=== PATIENT | female | born 1960 | race Hispanic/Latino ===

== ENCOUNTER 2018-10-23 02:25 | Inpatient (IN) | payer MEDICARE ==
[2018-10-23 02:31] VITALS: BMI 32.3
--- NOTE | 2018-10-23 02:31 | ED PDOC ---
Psych Transfer Clearance - Clearance Statement Clearance Statement: Reviewed vital signs, lab results and transfer papers. Patient clinically stable for psychiatric admission.
[2018-10-23 02:32] VITALS: O2SAT 96
[2018-10-23] MEDS ORDERED: Magnesium Hydroxide Susp 30 ml UD PO PRN (02:46)
[2018-10-23] MEDS ORDERED: DiphenhydrAMINE 50 mg/ml Inj IM PRN (02:46)
[2018-10-23] MEDS ORDERED: Alum-Mag Hydrox-Simethicone Susp (30 mL) PO PRN (02:46)
--- NOTE | 2018-10-23 03:49 | PCM.BM ---
<Maggie Ibarra - Last Filed: 10/23/18 03:47> Treatment Plan Problems - Problems identified on initial assessmt Anxiety Date Initiated: 10/23/18 Time Initiated: 03:47 Assessment reference: NA Status: Active Hopelessness/Helplessness Date Initiated: 10/23/18 Time Initiated: 03:47 Assessment reference: NA Status: Active Less than Optimal Nutrition Date Initiated: 10/23/18 Time Initiated: 03:48 Assessment reference: NA Status: Active Treatment assets and liabiliti Patient Assests: adapts well, cooperative, ADL independent, negotiates basic needs, cognitively intact Patient Liabilities: financial problems, poor support system - Milieu Protocol Maintain good personal hygiene: daily Encourage regular showers, other Remind patient to perform daily oral care (prn), other Assist patient to perform ADL's (prn) Conduct patient checks and document Observation sheet: Q15 minutes Maintain personal safety: every shift Educate patient to report safety concerns to staff, every shift Monitor environment for contraband/sharps Medication safety: Monitor for expected outcome, potential side effects: every shift, Assess barriers to learning: every shift, Assess readiness for medication education: every shift <Humberto Vega - Last Filed: 10/31/18 15:14> Family Contact Family involvement: Family/SO is involved Family contact: Patient agrees to contact, Family has been contacted by patient, Telephone contact initiated by staff Family contact name: Jed Brothers - [phone] Family contacted how many times per week?: 2 - Goals for Treatment Patient goals for treatment: Pt reported she would like have her medications adjusted to help stabilize her mood, specifically her depression and anxiety. Discharge/Continuing Care - Education Needs Education Needs: Patient Medication, Patient Diagnosis/Disease Process, Patient Coping Skills, Patient Placement options, Patient Community resources, Patient Aftercare Safety Plan - Discharge Discharge Criteria: Tolerates medication w/o severe side effects, Free of Suicidal thoughts, Free of agitation, Normal sleep pattern, Ability to care for self, Reduction of target symptoms Discharge to:: Home, With Family - Treatment Team Participation Discussed with Family/SO: No Was Patient/Family/SO present at Treatment Team Meeting: Yes <Jacqueline Chavez - Last Filed: 11/06/18 16:08> Discharge/Continuing Care - Treatment Team Participation Patient/Family/SO Statement: 11/06/18 16:08 Patient was brought into tx team today to discuss progress on 3NP and tx goals. Pt. continues to report feeing numb. Pt. continues to present as depressed as exhibited by poor energy/motivation, feelings of hopelessness and sadness. Pt. appropriately tearful through-out discussion regarding of son. Pt. reported improvement in sleep disturbances and finally resting last night. Pt. denied SI/HI and was able to contract for safety on 3NP. Pt. strongly encouraged to participate in unit milieu to improve sleep hygiene, promote socialization, and improve mood. Patient has expressed interest in having a conversation with her therapist regarding pts progress on 3NP and sons recent passing. Pt. reporte d not feeling comfortable having that conversation using [employer] pay phones. Dictating Machine Typist informed pt. that therapist would be contacted as to arrange a possible time to bring patient into clinicians office so that patient has a safe space to communicate with her therapist. Dictating Machine Typist inquired whether patient is interested in having a restricted visitation for filled out to ensure that patient does not receive unwanted visitors through-out the weekend. Patient initially reported wanting to specify that only her current is allowed to visit but declined to fill out form when approached by RN following tx team.
[2018-10-23 08:18] LABS: BASO % 0.3 % (0.0-2.0); EOS % 0.4 % (0.0-4.0); HEMOGLOBIN 13.2 g/dL (12.0-16.0); LYMPH # 2.1 K/uL (1.0-4.3); LYMPH % 19.1 % (20.0-40.0); MEAN CELL VOLUME 94.8 fl (81.0-99.0); MEAN CORPUSCULAR HEMOGLOBIN 32.3 pg (27.0-31.0); MEAN CORPUSCULAR HGB CONC 34.1 g/dL (33.0-37.0); MEAN PLATELET VOLUME 8.6 fl (7.2-11.7); MONO # 0.6 K/uL (0.0-0.8); MONO % 5.7 % (0.0-10.0); NEUT # 8.3 K/uL (1.8-7.0); NEUT % 74.5 % (50.0-75.0); RBC 4.1 Mil/uL (3.80-5.20); RED CELL DISTRIBUTION WIDTH 12.6 % (11.5-14.5); WHITE BLOOD COUNT 11.2 K/uL (4.8-10.8)
[2018-10-23 08:30] LABS: ALB/GLOB RATIO 1.2 (1.0-2.1)
--- NOTE | 2018-10-23 08:30 | CARD ---
APPROVED REPORT Date of service: 10/23/2018 EKG Measurement Heart [id number] <Conclusion> Normal sinus rhythm Nonspecific ST abnormality Prolonged QT Abnormal ECG
[2018-10-23 08:36] LABS: ALBUMIN 3.8 g/dL (3.5-5.0); ALT/SGPT 93 U/L (9-52); AST/SGOT 38 U/L (14-36); BLOOD UREA NITROGEN 7 mg/dl (7-17); CALCIUM 9.1 mg/dL (8.4-10.2); GFR NON-AFRICAN AMERICAN > 60; HDL CHOLESTEROL 38 MG/DL (30-70)
[2018-10-23 08:45] LABS: LDL CHOLESTEROL 63 mg/dL (0-129)
[2018-10-23 09:00] LABS: T4 9.74 ug/dl (5.5-11.0)
--- NOTE | 2018-10-23 16:30 | PCM.PSYCH ---
Initial Psychiatric Evaluation - Initial Psychiatric Evaluation Legal Status: Capacity Chief Complaint (in patient's own words): I am so overwhelmed and tired of life History of Present Illness and Precipitating Events: pt is 58 ys old female with previous psychiatric diagnosis of depression/ bipolar depression, presented to ER having suicidal ideation with plan to overdose on medication pt reported depressed since age 17, has about seven suicidal attempts by jose benavides, has been increasingly depressed as her mother in law suffers from stroke, moved in with them, her is unemployed with financial difficulties pt has been having poor sleep with early insomnia, poor appetite low energy, increased anxiety feeling hopeless and helpless reported having passive suicidal ideation without active plan on the unit, denied perceptual disturbances, urine toxicology positive for cannabis Current Medications: Active Medications Generic Name Dose Route Start Last Admin Trade Name Freq PRN Reason Stop Dose Admin Acetaminophen 650 mg 10/23/18 02:46 Tylenol 325mg Tab PO Q4 PRN pain 1-7 Al Hydrox/Mg Hydrox/Simethicone 30 ml 10/23/18 02:46 Maalox Plus 30 Ml PO Q4 PRN Dyspepsia Buspirone HCl 10 mg 10/23/18 17:00 Buspar PO TID SARA Cholestyramine Resin 4 gm 10/23/18 17:00 Questran PO BID SARA Citalopram Hydrobromide 40 mg 10/23/18 13:30 10/23/18 14:12 Celexa PO 40 mg DAILY SARA Administration Clonazepam 0.25 mg 10/23/18 17:00 Klonopin PO TID SARA Diphenhydramine HCl 50 mg 10/23/18 02:46 Benadryl IM Q6 PRN Extrapyramidal S/S Unable PO Diphenhydramine HCl 50 mg 10/23/18 02:46 Benadryl PO Q6 PRN Extrapyramidal Symptoms Diphenhydramine HCl 50 mg 10/23/18 02:46 Benadryl PO HS PRN Sleep Haloperidol 5 mg 10/23/18 02:46 Haldol PO Q4 PRN Agitation Haloperidol Lactate 5 mg 10/23/18 02:46 Haldol IM Q4 PRN Agitation, Unable to Take PO Lorazepam 2 mg 10/23/18 02:46 Ativan IM Q6 PRN Anxiety/Agitation,Unable PO Lorazepam 1 mg 10/23/18 02:46 Ativan PO Q8 PRN Anxiety/Agitation Magnesium Hydroxide 30 ml 10/23/18 02:46 Milk Of Magnesia PO HS PRN Constipation Nitrofurantoin Macrocrystals 100 mg 10/23/18 21:00 Macrobid PO Q12 SARA Protocol Quetiapine Fumarate 150 mg 10/23/18 22:00 Seroquel PO HS SARA Zolpidem Tartrate 5 mg 10/23/18 13:27 Ambien PO HS PRN Insomnia Past Psychiatric History - Past Psychiatric History Explanation of prior treatment: about previous seven hospitalizations at [facility] seven previous suicidal attempts by overdose History of ETOH/Drug Use: cannabis abuse Pertinent Medical Hx (Current Medical&Sleep Prob, Allergies): Allergies Allergy/AdvReac Type Severity Reaction Status Date / Time Penicillins Allergy RASH Verified 10/23/18 02:29 Albuterol HFA [Ventolin HFA 90 mcg/actuation (8 g)] 2 puff INH DAILY PRN 10/23/18 Citalopram Hydrobromide [Celexa] 40 mg PO DAILY 10/23/18 Fluticasone/Vilanterol 100/25 [Breo Ellipta 100-25 MCG INH] 1 puff INH DAILY 10/23/18 Nitrofurantoin Macrocrystals [Macrobid] 100 mg PO BID 10/23/18 Quetiapine Fumarate [Seroquel] 100 mg PO HS 10/23/18 Zolpidem [Ambien] 10 mg PO HS 10/23/18 busPIRone [Buspar] 15 mg PO BID 10/23/18 clonazePAM [clonAZEPAM] 0.5 mg PO TID 10/23/18 valACYclovir [Valtrex] 500 mg PO DAILY 10/23/18 Mental Status Examination - Personal Presentation Personal Presentation: Looks older than stated age - Affect Affect: Constricted, Depressed - Motor Activity Motor Activity: Psychomotor Retardation - Reliability in Providing Information Reliability in Providing Information: Fair - Speech Speech: Relevant - Mood Mood: Depressed, Anxious - Formal Thought Process Formal Thought Process: Circumstantial - Obsessions/Compulsions Obsessions: No Compulsions: No - Cognitive Functions Orientation: Person, Place, Situation, Time Sensorium: Alert Judgement: Imparied, as evidence by: Poor judgement - Risk Risk: Suicidal, Diminished functioning - Strength & Assets Inventory Strength & Assets Inventory: Life experience - Limitations Additional comments: poor social support DSM 5 DX - DSM 5 DSM 5 Diagnosis: major depression recurrent rule out bipolar disorder depressed cannabis use disorder - Recommended/Plan of Treatment Treatment Recommendations and Plan of Treatment: start celexa 40mg daily seroquel 200mg qhs klonopin 0.25mg tid buspar 10mg tid cbt group supportive therapy medical consult for diarrhea and hypokalemia
[2018-10-24] MEDS: Cholestyramine 4 gm/Pkt UD PO SCH ×2 (09:00→17:08)
--- NOTE | 2018-10-24 15:13 | PCM.PYCHPN ---
Psychiatric Progress Note - Psychiatric Progress Note Patient seen today, length of contact: pt has been evaluated . Patient Chief Complaint: pt has been feeling depressed and anxious triggered by many psychosocial stressor , of a close friend recently .pt remains with poor insight and ralph further stabilization. Mental Status Examination - Cognitive Function Orientation: Person, Place, Situation, Time - Mood Mood: Depressed, Anxious - Affect Affect: Constricted, Depressed - Formal Thought Process Formal Thought Process: Circumstantial Goal/Treatment Plan - Goal/Treatment Plan Progress Toward Problem(s) and Goals/Treatment Plan: Continue the current regimen of seriquel and buspar and titrate the meds as needed . Follow up with dr sutherland regarding d/c plan medical follow up regarding diarrhoea and hypokalemia.
--- NOTE | 2018-10-25 00:55 | CON ---
DATE: 10/24/2018 HISTORY OF PRESENT ILLNESS: This is a 58-year-old female with history of psychiatric diagnosis of depression and bipolar disorder was admitted to psychiatry floor. Medical consultation was called for medical followup while the patient is in psychiatry floor. The patient was in [facility] where she was diagnosed with urinary tract infection. The patient was started on nitrofurantoin for urinary tract infection. The patient was complaining of diarrhea. Other review of systems is negative. ALLERGIES: NO KNOWN ALLERGIES. MEDICATIONS: Reviewed and ordered as per MAR. SOCIAL HISTORY: No history of smoking, ETOH or substance abuse. PAST MEDICAL HISTORY: Bronchial asthma, hypertension. FAMILY HISTORY: Noncontributory. PHYSICAL EXAMINATION: GENERAL: The patient is not in any cardiopulmonary distress. VITAL SIGNS: Blood pressure 129/80, temperature 97.5, respiratory rate 20, and pulse 90. HEENT: Pupils equal, reactive to light. Normal-appearing mucosa of the conjunctivae, oropharynx, and nasal membrane mucosa. NECK: Supple. No JVD. No carotid bruit. No lymph node. CHEST AND LUNGS: Bilateral symmetrical expansion. Good air exchange. No rales. No rhonchi. CARDIOVASCULAR SYSTEM: PMI not localized. S1 and S2. No additional sounds. ABDOMEN: Normoactive bowel sounds. No tenderness. No organomegaly. No masses. EXTREMITIES: No cyanosis. No clubbing. No edema. CENTRAL NERVOUS SYSTEM: Alert, awake, oriented x2. No neurological deficit could be appreciated. ASSESSMENT: 1. Urinary tract infection. 2. Diarrhea. Differential diagnosis could be antibiotic related. PLAN: We will check stool for C. difficile and will give the patient Questran 4 g twice a day as needed for diarrhea, and we will continue the nitrofurantoin that was started in [facility] for another 5 days. We will follow up the patient with you. Liz Everett MD
[2018-10-25] MEDS: Cholestyramine 4 gm/Pkt UD PO SCH ×3 (10:17→17:51)
--- NOTE | 2018-10-25 12:23 | PCM.PYCHPN ---
Psychiatric Progress Note - Psychiatric Progress Note Patient seen today, length of contact: pt has been evaluated . Patient Chief Complaint: pt has been feeling less depressed and less anxious but is worried about not being on valtrex prescribed for her Herpes and afraid of any outbreak.pt has been feeling depressed and anxious triggered by many psychosocial stressor , of a close friend recently .pt remains with poor insight and ralph further stabilization. Medication Change: Yes (restart valtrex) Medical Record Reviewed: Yes Mental Status Examination - Cognitive Function Orientation: Person, Place, Situation, Time Attention: Poor Concentration: Poor Association: WNL Fund of Knowledge: WNL - Mood Mood: Depressed, Anxious - Affect Affect: Constricted, Depressed - Formal Thought Process Formal Thought Process: Circumstantial Goal/Treatment Plan - Goal/Treatment Plan Progress Toward Problem(s) and Goals/Treatment Plan: Continue the current regimen of seroquel celexa and buspar and titrate the meds as needed . will restart valtrex and follow up with hospitalist . Follow up with dr sutherland regarding d/c plan
[2018-10-26] MEDS: Cholestyramine 4 gm/Pkt UD PO SCH (12:35)
--- NOTE | 2018-10-26 17:36 | PCM.PYCHPN ---
Psychiatric Progress Note - Psychiatric Progress Note Patient seen today, length of contact: chart reviewed case discussed with team Patient Chief Complaint: depression anxiety has had medication adjusted /changed per this admission, reports previous rx was for prolonged period of time, was having suicidal ideations, staff report pt rx adherent denies notable side effects, seen in unit/milieu Problems Identified/Issues Discussed: alteration in mood alteration in coping Medical Problems: per chart Diagnostic Results: per psychiatry per medicine per nursing per social work per recreational therapy DSM 5 Symptoms Update: somewhat improving depression Medication Change: No Medical Record Reviewed: Yes Consults ordered or reviewed: pt being followed by hospitalist Mental Status Examination - Cognitive Function Orientation: Person, Place, Situation, Time - Mood Mood: Depressed, Anxious - Affect Affect: Constricted, Depressed - Formal Thought Process Formal Thought Process: Circumstantial Goal/Treatment Plan - Goal/Treatment Plan Progress Toward Problem(s) and Goals/Treatment Plan: inpt milieu adjust medications per clinical status vital signs and clinical observation per protocol and per clinical status pt being followed by hospitalist pt being treated for uti-team to contact hospitalist if antibiotic to be extended team to consider having pt evaluated by dietition pt reported discreased appeitite charge planning in progress Estimated Date of D/C: 10/30/18 - Smoking Cessation Smoking Cessation Initiated: No Reason for not providing: pt defers
--- NOTE | 2018-10-26 22:35 | PN ---
DATE: 10/26/2018 SUBJECTIVE: The patient is not in any cardiopulmonary distress. The patient was on nitrofurantoin. PHYSICAL EXAMINATION: VITAL SIGNS: Blood pressure 136/83, temperature 98, respiratory rate 18, pulse 87. HEENT: Pupils equal, reactive to light. Normal-appearing mucosa of the conjunctivae, oropharynx and nasal membrane mucosa. NECK: Supple. No JVD. No carotid bruit. No lymph node. No thyromegaly. CHEST AND LUNGS: Bilateral symmetrical expansion. Good air exchange. No rales, no rhonchi. CARDIOVASCULAR SYSTEM: PMI not localized. S1, S2, no additional sounds. ABDOMEN: Normoactive bowel sounds. No tenderness. No organomegaly. No masses. EXTREMITIES: No cyanosis, no clubbing, no edema. TOW PICKER: Alert, awake, oriented x2. No neurological deficit could be appreciated. ASSESSMENT: 1. Urinary tract infection. 2. Hypokalemia. 3. Transaminitis with elevated liver enzymes. PLAN: Continue current medications, and we will repeat the blood work in the morning. Liz Everett MD
[2018-10-27 07:14] LABS: ALB/GLOB RATIO 1.2 (1.0-2.1); ALBUMIN 3.6 g/dL (3.5-5.0); ALT/SGPT 64 U/L (9-52); AST/SGOT 25 U/L (14-36); BLOOD UREA NITROGEN 8 mg/dl (7-17); CALCIUM 9.4 mg/dL (8.4-10.2); GFR NON-AFRICAN AMERICAN > 60
--- NOTE | 2018-10-27 11:42 | PCM.PYCHPN ---
Psychiatric Progress Note - Psychiatric Progress Note Patient seen today, length of contact: chart reviewed case discussed with team Patient Chief Complaint: I have no energy and no appetite Problems Identified/Issues Discussed: pt seen in bed, anhedonic, poor eye contact speech soft and slow depressed mood and affect , low energy and poor motivation, reported poor appetite and interrupted sleep, discussed with pt the need to change medications, downtitrating seroquel and celexa and starting abilify for depression and mood stabilization with less sedating effect also starting remeron at night for improving sleep and appetite , encouraged pt to attend groups and participate in treatment pt reporting passive suicidal ideation without active plan on the unit, denied perceptual disturbances Medical Problems: about previous seven hospitalizations at [facility] seven previous suicidal attempts by overdose DSM 5 Symptoms Update: bipolar disorder depressed Medication Change: Yes (start abilify and remeron) Medical Record Reviewed: Yes Mental Status Examination - Cognitive Function Orientation: Person, Place, Situation, Time Memory: Intact Attention: WNL Concentration: Poor Association: WNL Fund of Knowledge: Poor Decription of patient's judgement and insights: partial insight , fair judgment - Mood Mood: Depressed, Anxious - Affect Affect: Constricted, Depressed - Speech Speech: Soft - Formal Thought Process Formal Thought Process: Circumstantial Psychotic Thoughts and Behaviors: pt denied perceptual disturbances, non elicited - Suicidal Ideation Suicidal Ideation: No - Homicidal Ideation Homicidal Ideation: No Goal/Treatment Plan - Goal/Treatment Plan Need for Continued Stay: Remain at risks for inpatient hospitalization, Severe depression anxiety Progress Toward Problem(s) and Goals/Treatment Plan: decrease celexa 20mg daily with plan to discontinue decrease seroquel 50mg qhs with plan to discontinue klonopin 0.25mg tid buspar 10mg tid start abilify 5mg start remeron 7.5 mg qhs cbt group supportive therapy Estimated Date of D/C: 10/30/18
[2018-10-27] MEDS: Cholestyramine 4 gm/Pkt UD PO SCH (12:43)
[2018-10-27] MEDS ORDERED: Potassium Chloride 20 mEq ER Tab PO ONE (16:02)
[2018-10-28] MEDS: Cholestyramine 4 gm/Pkt UD PO SCH ×3 (09:19→17:32)
--- NOTE | 2018-10-28 14:53 | PCM.PYCHPN ---
Psychiatric Progress Note - Psychiatric Progress Note Patient seen today, length of contact: chart reviewed case discussed with team Patient Chief Complaint: I am trying to push myself to do things Problems Identified/Issues Discussed: pt seen in day room, reported feeling less depressed, improved sleep with remeron, continues to report poor appetite and low energy level, discussed increasing dose of abilify and remeron, no reported side effects pt denied active thoughts of self harm on the unit , denied perceptual disturbances Medical Problems: about previous seven hospitalizations at [facility] seven previous suicidal attempts by overdose DSM 5 Symptoms Update: bipolar ii disorder depressed Medication Change: Yes (increase abilify and remeron) Medical Record Reviewed: Yes Mental Status Examination - Cognitive Function Orientation: Person, Place, Situation, Time Memory: Intact Attention: WNL Concentration: WNL Association: WNL Fund of Knowledge: [facility] Decription of patient's judgement and insights: partial insight , fair judgment - Mood Mood: Depressed, Anxious - Affect Affect: Constricted, Depressed - Speech Speech: Soft - Formal Thought Process Formal Thought Process: Circumstantial Psychotic Thoughts and Behaviors: pt denied perceptual disturbances, non elicited - Suicidal Ideation Suicidal Ideation: No - Homicidal Ideation Homicidal Ideation: No Goal/Treatment Plan - Goal/Treatment Plan Need for Continued Stay: Remain at risks for inpatient hospitalization, Severe depression anxiety Progress Toward Problem(s) and Goals/Treatment Plan: discontinue celexa discontinue klonopin 0.5mg bid buspar 10mg tid increase abilify 10mg increase remeron 15 mg qhs cbt group supportive therapy Estimated Date of D/C: 10/30/18
--- NOTE | 2018-10-29 00:33 | PN ---
DATE: 10/28/2018 SUBJECTIVE: The patient is seen today, 10/28/2018. Potassium was low and the patient was supplemented potassium. It was 3. PHYSICAL EXAMINATION: VITAL SIGNS: Blood pressure 155/91, temperature 98, respiratory rate 20, and pulse 97. HEENT: Pupils equal and reactive to light. Normal-appearing mucosa of the conjunctivae, oropharynx, and nasal membrane mucosa. NECK: Supple. No JVD. No carotid bruits. No lymph node. No thyromegaly. CHEST AND LUNGS: Bilateral symmetrical expansion. Good air exchange. No rales. No rhonchi. CARDIOVASCULAR SYSTEM: PMI not localized. S1, S2. No additional sounds. ABDOMEN: Normoactive bowel sounds. No tenderness. No organomegaly. No masses. EXTREMITIES: No cyanosis, no clubbing, no edema. POULTRY FARMWORKER: Alert, awake, oriented x2. No neurological deficit could be appreciated. ASSESSMENT: 1. Elevation of the blood pressure, only one reading was elevated. 2. Urinary tract infection. 3. Likely antibiotic-related diarrhea, which improved. 4. Hypokalemia. PLAN: We will repeat blood work and confirm stability. If the blood pressure continued to be elevated, we will consider starting the patient on antihypertensive medications. Liz Everett MD
[2018-10-29] MEDS: Cholestyramine 4 gm/Pkt UD PO SCH (09:04)
--- NOTE | 2018-10-29 15:54 | PCM.PYCHPN ---
Psychiatric Progress Note - Psychiatric Progress Note Patient seen today, length of contact: chart reviewed case discussed with team Patient Chief Complaint: I feel down because my friend left Problems Identified/Issues Discussed: pt seen in day room, reported improved sleep with remeron, continues to report depressed mood , constricted affect ,lno reported side effects , CBT provided, discussed with pt the need to challenge negative thoughts, pt denied active t houghts of self harm on the unit , denied perceptual disturbances Medical Problems: about previous seven hospitalizations at [facility] seven previous suicidal attempts by overdose DSM 5 Symptoms Update: bipolar disorder depressed borderline personality disorder traits Medication Change: No Medical Record Reviewed: Yes Mental Status Examination - Cognitive Function Orientation: Person, Place, Situation, Time Memory: Intact Attention: WNL Concentration: WNL Association: WNL Fund of Knowledge: [facility] Decription of patient's judgement and insights: partial insight , fair judgment - Mood Mood: Depressed, Anxious - Affect Affect: Constricted, Depressed - Speech Speech: Soft - Formal Thought Process Formal Thought Process: Circumstantial Psychotic Thoughts and Behaviors: pt denied perceptual disturbances, non elicited - Suicidal Ideation Suicidal Ideation: No - Homicidal Ideation Homicidal Ideation: No Goal/Treatment Plan - Goal/Treatment Plan Need for Continued Stay: Remain at risks for inpatient hospitalization, Severe depression anxiety Progress Toward Problem(s) and Goals/Treatment Plan: klonopin 0.5mg bid buspar 10mg tid abilify 10mg remeron 15 mg qhs cbt group supportive therapy Estimated Date of D/C: 10/30/18
[2018-10-30 08:53] LABS: BLOOD UREA NITROGEN 7 mg/dl (7-17); CALCIUM 9.3 mg/dL (8.4-10.2); GFR NON-AFRICAN AMERICAN > 60
[2018-10-30] MEDS: Cholestyramine 4 gm/Pkt UD PO SCH ×2 (09:24→17:30)
[2018-10-30] MEDS ORDERED: Potassium Chloride 20 mEq ER Tab PO ONE (11:58)
--- NOTE | 2018-10-30 14:49 | PCM.PYCHPN ---
Psychiatric Progress Note - Psychiatric Progress Note Patient seen today, length of contact: chart reviewed case discussed with team Patient Chief Complaint: I feel I have no energy to do anything Problems Identified/Issues Discussed: pt seen in day room, presenting with depressed mood and affect, reported poor appetite, anhedonia and feeling hopeless, pt indicated feeling sad about her discharged roommate also depressed about her appearance with the dentures and about her urinary incontinence ,pt also anxious about the situation at home and he mother in law illness CBT provided discussed with pt coping skills with stresses and options to overcome the limitations due to physical condition, encouraged pt to attend groups and participate in treatment, discussed starting wellbutrin to improve anhedonia and low energy pt denied any current suicidal or homicidal ideation denied perceptual disturbances Medical Problems: about previous seven hospitalizations at [facility] seven previous suicidal attempts by overdose DSM 5 Symptoms Update: bipolar disorder depressed Medication Change: Yes (start wellbutrin) Medical Record Reviewed: Yes Mental Status Examination - Cognitive Function Orientation: Person, Place, Situation, Time Memory: Intact Attention: WNL Concentration: WNL Association: WN Fund of Knowledge: [facility] Decription of patient's judgement and insights: partial insight , fair judgment - Mood Mood: Depressed, Anxious - Affect Affect: Constricted, Depressed - Speech Speech: Soft - Formal Thought Process Formal Thought Process: Circumstantial Psychotic Thoughts and Behaviors: pt denied perceptual disturbances, non elicited - Suicidal Ideation Suicidal Ideation: No - Homicidal Ideation Homicidal Ideation: No Goal/Treatment Plan - Goal/Treatment Plan Need for Continued Stay: Remain at risks for inpatient hospitalization, Severe depression anxiety Progress Toward Problem(s) and Goals/Treatment Plan: start wellbutrin 75 mg daily , increase as needed klonopin 0.5mg bid buspar 10mg tid abilify 10mg remeron 15 mg qhs cbt group supportive therapy K level noted to be 3.2, discussed with Dr chris , encourage pt to increase food and fluid input Estimated Date of D/C: 11/03/18
--- NOTE | 2018-10-30 22:02 | PN ---
DATE: 10/30/2018 SUBJECTIVE: The patient is seen today, 10/30/2018. She is not in any cardiopulmonary distress. The patient feels generalized weakness and she has poor oral intake. PHYSICAL EXAMINATION: VITAL SIGNS: Blood pressure 135/96, temperature 97.5, respiratory rate 18, and pulse 86. HEENT: Pupils equal and reactive to light. Normal-appearing mucosa of the conjunctivae, oropharynx, and nasal membrane mucosa. NECK: Supple. No JVD. No carotid bruit. No lymph node. No thyromegaly. CHEST AND LUNGS: Bilateral symmetrical expansion. Good air exchange. No rales, no rhonchi. CARDIOVASCULAR SYSTEM: PMI not localized. S1, S2. No additional sounds. ABDOMEN: Normoactive bowel sounds. No tenderness. No organomegaly. No masses. EXTREMITIES: No cyanosis, no clubbing, no edema. CENTRAL NERVOUS SYSTEM: Alert, awake, oriented x2. No neurological deficit could be appreciated. ASSESSMENT: 1. Hypokalemia. 2. Urinary tract infection. 3. Status post diarrhea which has resolved. PLAN: We will supplement potassium, and magnesium was tested before. If the patient to remain hypertensive, then we will do further workup for possible hyperaldosteronism. Liz Everett MD
--- NOTE | 2018-10-31 09:06 | PCM.PYCHPN ---
Psychiatric Progress Note - Psychiatric Progress Note Patient seen today, length of contact: chart reviewed case discussed with team Patient Chief Complaint: pt has remained very depressed with low energy ,anhedlnia and poor concentration and still with limited insight and need further stabilization. been feeling depressed and anxious triggered by many psychosocial stressor , of a close friend recently .pt remains with poor insight and need further stabilization. Medication Change: Yes (start wellbutrin) Medical Record Reviewed: Yes Mental Status Examination - Cognitive Function Orientation: Person, Place, Situation, Time Memory: Intact Attention: WNL Concentration: WNL Association: WNL Fund of Knowledge: WNL - Mood Mood: Depressed, Anxious - Affect Affect: Constricted, Depressed - Speech Speech: Soft - Formal Thought Process Formal Thought Process: Circumstantial - Suicidal Ideation Suicidal Ideation: No - Homicidal Ideation Homicidal Ideation: No Goal/Treatment Plan - Goal/Treatment Plan Need for Continued Stay: Remain at risks for inpatient hospitalization, Severe depression anxiety Progress Toward Problem(s) and Goals/Treatment Plan: Will increase wellbutrin to 150 mg daily to stabilize the depression and titrate the other meds as needed . Follow up with dr sutherland regarding disposition. medical follow up .. Estimated Date of D/C: 11/03/18
--- NOTE | 2018-10-31 15:21 | PCM.BM ---
Treatment Plan Problems - Problems identified on initial assessmt Anxiety Date Initiated: 10/23/18 Time Initiated: 03:47 Assessment reference: NA Status: Active Hopelessness/Helplessness Date Initiated: 10/23/18 Time Initiated: 03:47 Assessment reference: NA Status: Active Less than Optimal Nutrition Date Initiated: 10/23/18 Time Initiated: 03:48 Assessment reference: NA Status: Active Treatment assets and liabiliti Patient Assests: adapts well, cooperative, ADL independent, negotiates basic needs, cognitively intact Patient Liabilities: financial problems, poor support system - Milieu Protocol Maintain good personal hygiene: daily Encourage regular showers, other Remind patient to perform daily oral care (prn), other Assist patient to perform ADL's (prn) Conduct patient checks and document Observation sheet: Q15 minutes Maintain personal safety: every shift Educate patient to report safety concerns to staff, every shift Monitor environment for contraband/sharps Medication safety: Monitor for expected outcome, potential side effects: every shift, Assess barriers to learning: every shift, Assess readiness for medication education: every shift Milieu Narrative: Will increase wellbutrin to 150 mg daily to stabilize the depression and titrate the other meds as needed . Follow up with dr sutherland regarding disposition. medical follow up .. Family Contact Family involvement: Family/SO is involved Family contact: Patient agrees to contact, Family has been contacted by patient, Telephone contact initiated by staff Family contact name: Jed Brothers - [phone] Family contacted how many times per week?: 2 - Goals for Treatment Patient goals for treatment: Pt reported she would like have her medications adjusted to help stabilize her mood, specifically her depression and anxiety. Discharge/Continuing Care - Education Needs Education Needs: Patient Medication, Patient Diagnosis/Disease Process, Patient Coping Skills, Patient Placement options, Patient Community resources, Patient Aftercare Safety Plan - Discharge Discharge Criteria: Tolerates medication w/o severe side effects, Free of Suicidal thoughts, Free of agitation, Normal sleep pattern, Ability to care for self, Reduction of target symptoms Discharge to:: Home, With Family - Treatment Team Participation Patient/Family/SO Statement: Will increase wellbutrin to 150 mg daily to stabilize the depression and titrate the other meds as needed . Follow up with dr sutherland regarding disposition. medical follow up .. Discussed with Family/SO: No Was Patient/Family/SO present at Treatment Team Meeting: Yes Treatment Plan Review - Problem Anxiety Time Initiated: 03:47 Hopelessness/Helplessness Time Initiated: 03:47 Less than Optimal Nutrition Time Initiated: 03:48 - Discharge / Continuing Care Discharge to:: Home, With Family Behavioral Health Services: Outpatient therapy Health Needs: Follow up care/test, Doctor appointments, Medications/Rx (Pt was seen in treatment team for a review on 10/30/18. Pt appeared more depressed than a week prior with disheveled hair, minimal speech, poor eye contact and poor engagement. Pt denied SI/HI and AVT hallucinations. Pt has been isolating in her room recently and her participation in groups has lessened. )
[2018-10-31] MEDS: Cholestyramine 4 gm/Pkt UD PO SCH ×2 (17:26→17:27)
[2018-11-01] MEDS: Cholestyramine 4 gm/Pkt UD PO SCH (09:28)
--- NOTE | 2018-11-01 11:16 | PCM.PYCHPN ---
Psychiatric Progress Note - Psychiatric Progress Note Patient seen today, length of contact: chart reviewed case discussed with team Patient Chief Complaint: I am still depressed Problems Identified/Issues Discussed: pt evaluated, continues to report feeling depressed, poor response to wellbutrin, continues to be anhedonic, low motivation and energy, poor appetite pt denied any current suicidal or homicidal ideation denied perceptual disturbances Medical Problems: about previous seven hospitalizations at [facility] seven previous suicidal attempts by overdose DSM 5 Symptoms Update: major depression Medication Change: Yes (start effexor ) Medical Record Reviewed: Yes Mental Status Examination - Cognitive Function Orientation: Person, Place, Situation, Time Memory: Intact Attention: WNL Concentration: WNL Association: WNL Fund of Knowledge: WNL - Mood Mood: Depressed, Anxious - Affect Affect: Constricted, Depressed - Speech Speech: Soft - Formal Thought Process Formal Thought Process: Circumstantial - Suicidal Ideation Suicidal Ideation: No - Homicidal Ideation Homicidal Ideation: No Goal/Treatment Plan - Goal/Treatment Plan Need for Continued Stay: Remain at risks for inpatient hospitalization, Severe depression anxiety Progress Toward Problem(s) and Goals/Treatment Plan: discontinue wellbutrin start effexor 37.5mg daily klonopin 0.5mg bid buspar 10mg tid abilify 10mg remeron 15 mg qhs cbt group supportive therapy Estimated Date of D/C: 11/03/18
[2018-11-01] MEDS: Venlafaxine 37.5 mg ER Cap PO SCH (14:57)
[2018-11-02] MEDS: Venlafaxine 37.5 mg ER Cap PO SCH (09:14)
[2018-11-02] MEDS: Cholestyramine 4 gm/Pkt UD PO SCH ×2 (09:40→16:03)
[2018-11-02 11:48] LABS: ALB/GLOB RATIO 1.2 (1.0-2.1); ALBUMIN 4.1 g/dL (3.5-5.0); ALT/SGPT 81 U/L (9-52); AST/SGOT 42 U/L (14-36); BLOOD UREA NITROGEN 10 mg/dl (7-17); CALCIUM 9.9 mg/dL (8.4-10.2); GFR NON-AFRICAN AMERICAN > 60
--- NOTE | 2018-11-02 15:54 | PCM.PYCHPN ---
Psychiatric Progress Note - Psychiatric Progress Note Patient seen today, length of contact: chart reviewed case discussed with team Patient Chief Complaint: I am a little better Problems Identified/Issues Discussed: pt evaluated, seen in day room, less guarded, speech more productive and better eye contact, reported feeling less depressed, continues to report poor appetite, discussed increasing effexor, no reported side effects pt denied any current suicidal or homicidal ideation denied perceptual disturbances Medical Problems: about previous seven hospitalizations at [facility] seven previous suicidal attempts by overdose DSM 5 Symptoms Update: bipolar disorder depressed Medication Change: Yes (increase effexor ) Medical Record Reviewed: Yes Mental Status Examination - Cognitive Function Orientation: Person, Place, Situation, Time Memory: Intact Attention: WNL Concentration: WNL Association: WNL Fund of Knowledge: WNL - Mood Mood: Depressed, Anxious - Affect Affect: Constricted, Depressed - Speech Speech: Soft - Formal Thought Process Formal Thought Process: Circumstantial - Suicidal Ideation Suicidal Ideation: No - Homicidal Ideation Homicidal Ideation: No Goal/Treatment Plan - Goal/Treatment Plan Need for Continued Stay: Remain at risks for inpatient hospitalization, Severe depression anxiety Progress Toward Problem(s) and Goals/Treatment Plan: increase effexor 75 mg daily klonopin 0.5mg bid buspar 10mg tid abilify 10mg remeron 15 mg qhs cbt group supportive therapy Estimated Date of D/C: 11/03/18
[2018-11-02] MEDS ORDERED: Potassium Chloride 20 mEq/15 ml LIQ UD PO ONE (20:08)
--- NOTE | 2018-11-03 00:18 | PN ---
DATE: 11/02/2018 DAILY PROGRESS NOTE SUBJECTIVE: The patient is seen today, 11/02/2018. She is not in any cardiopulmonary distress. PHYSICAL EXAMINATION: VITAL SIGNS: Blood pressure 154/84, temperature 97.7, respiratory rate 20, and pulse 90. HEENT: Pupils equal and reactive to light. Normal-appearing mucosa of the conjunctivae, oropharynx, and nasal membrane mucosa. NECK: Supple. No JVD. No carotid bruit. No lymph node. No thyromegaly. CHEST AND LUNGS: Bilateral symmetrical expansion. Good air exchange. No rales. No rhonchi. CARDIOVASCULAR SYSTEM: PMI not localized. S1 and S2. No additional sounds. ABDOMEN: Normoactive bowel sounds. No tenderness. No organomegaly. No masses. EXTREMITIES: No cyanosis, no clubbing, no edema. CENTRAL NERVOUS SYSTEM: Alert, awake, oriented x2. No neurological deficit could be appreciated. ASSESSMENT: 1. Hypokalemia with potassium of 3.5. 2. Hypertension, blood pressure 151/104, that dropped to 151/84. 3. Rule out hyperaldosteronism. PLAN: We will call endocrinology consult. Supplement potassium. Liz Everett MD
[2018-11-03] MEDS: Cholestyramine 4 gm/Pkt UD PO SCH ×2 (08:47→17:34)
[2018-11-03] MEDS: Venlafaxine 75 mg ER Cap PO SCH (13:22)
[2018-11-04] MEDS: Venlafaxine 75 mg ER Cap PO SCH (09:26)
[2018-11-04] MEDS: Cholestyramine 4 gm/Pkt UD PO SCH ×2 (09:28→17:01)
--- NOTE | 2018-11-04 16:13 | PCM.PYCHPN ---
Psychiatric Progress Note - Psychiatric Progress Note Patient seen today, length of contact: chart reviewed case discussed with team Patient Chief Complaint: I do not know how to feel it is very hard Problems Identified/Issues Discussed: pt tevaluated, seen in her room, depressed isolating herself, pt mourning the loss of her son, reported feeling numb, with mixed emotional feelings, supportive therapy provided, encouraged pt to interact with peers and staff and attempt to attend groups, discussed increasing effexor gradually denied any current active thoughts of self harm on the unit Medical Problems: about previous seven hospitalizations at [facility] seven previous suicidal attempts by overdose DSM 5 Symptoms Update: bipolar disorder depressed Medication Change: No Medical Record Reviewed: Yes Mental Status Examination - Cognitive Function Orientation: Person, Place, Situation, Time Memory: Intact Attention: WNL Concentration: WNL Association: WNL Fund of Knowledge: WNL - Mood Mood: Depressed, Anxious - Affect Affect: Constricted, Depressed - Speech Speech: Soft - Formal Thought Process Formal Thought Process: Circumstantial - Suicidal Ideation Suicidal Ideation: No - Homicidal Ideation Homicidal Ideation: No Goal/Treatment Plan - Goal/Treatment Plan Need for Continued Stay: Remain at risks for inpatient hospitalization, Severe depression anxiety, Discharge may exacerbated symptoms Progress Toward Problem(s) and Goals/Treatment Plan: effexor 75 mg daily klonopin 0.5mg bid and 0.5mg qhs buspar 10mg tid abilify 10mg remeron 15 mg qhs start ativan prn pt will be monitored by staff and supportive therapy will be provided , monitored for any changes in mental status Estimated Date of D/C: 11/03/18
--- NOTE | 2018-11-05 01:34 | PN ---
DATE: 11/04/2018 SUBJECTIVE: The patient is seen today , 11/04/2018. She is feeling generalized weakness. PHYSICAL EXAMINATION: VITAL SIGNS: Blood pressure is 128/88, temperature 98.5, respiratory rate 20, and pulse 106. HEENT: Pupils equal, reactive to light. Normal-appearing mucosa of the conjunctivae, oropharynx and nasal membrane mucosa. NECK: Supple. No JVD. No carotid bruit. No lymph node. No thyromegaly. CHEST AND LUNGS: Bilateral symmetrical expansion. Good air exchange. No rales, no rhonchi. CARDIOVASCULAR SYSTEM: PMI not localized. S1, S2. No additional sounds. ABDOMEN: Normoactive bowel sounds. No tenderness. No organomegaly. No masses. EXTREMITIES: No cyanosis, no clubbing, no edema. RAD TECH: Alert, awake, oriented x2. No neurological deficit could be appreciated. ASSESSMENT: Hypokalemia, mild hypertension, status post urinary tract infection that was treated. PLAN: Follow Endocrinology recommendations. Continue current medications. We will follow up with you. Liz Everett MD
--- NOTE | 2018-11-05 05:02 | CON ---
DATE: 11/04/2018 ENDOCRINOLOGY CONSULTATION LOCATION: Room 316. HISTORY OF PRESENT ILLNESS: This is a 58-year-old female with known history of major depressive disorder, presenting here with suicidal ideations and is now undergoing close psychiatric evaluation and management and is being referred also for endocrine evaluation of abnormal potassium levels and persistent hypokalemia and the needs to using furosemide, a diuretic medication. The exact dose is not known at this time. History of hypertension, dyslipidemia, history of generalized anxiety and depression and multiple admissions. There is no known substance use. REVIEW OF SYSTEMS: As mentioned above. Admits to generalized body weakness with easy fatigability and tiredness and suboptimal energy level. Also admits to insomnia and agitation. No chest pains or palpitations. Her oral intake has been variable with nausea and dyspepsia and recent loose watery diarrhea that is resolved over the last day or so while inpatient. PHYSICAL EXAMINATION: GENERAL: Average-built female, in no apparent distress. VITAL SIGNS: With a blood pressure of 140/90, pulse of 100 beats per minute and regular, temperature 98, respirations 20. Height is 5 feet 6 inches. Weight is 200 pounds. HEENT: Head is normocephalic. Eyes are anicteric with pink conjunctivae. Funduscopy is not possible at this time. Ears, nose, and throat otherwise normal. NECK: Supple. Thyroid gland is normal in size. No carotid bruits or cervical adenopathy. CARDIOPULMONARY: Some adynamic precordium. S1 and S2. Rapid and regular. LUNGS: Clear to auscultation. ABDOMEN: Flat, soft with positive bowel sounds. EXTREMITIES: No peripheral edema. Pulses are +2 bilaterally. LABORATORY DATA: Chemistries showed initially a BUN of 7, sodium 143, potassium 3.2, chloride 108, CO2 of 27, glucose 99, and creatinine 0.7. She has received potassium supplementation and the last potassium is 3.5. T4 is 9.7 and TSH is 2.6. ASSESSMENT: This is a 58-year-old female with major depressive disorder and generalized anxiety state, presenting here with suicidal ideations and is now being referred for endocrine evaluation for possible hyperaldosteronism which is quite unlikely considering the recent history of loose watery diarrhea and a combination of outpatient intake of diuretic therapy contributing to the hypokalemia. Moreover, the patient's with hyperaldosteronism and marked hypokalemia usually in the too range of lower with refractory hypertension, usually using three to four medications and persistent hypertensive accelerations thereof. The patient at this time is not on any kind of hypertension medication as noted. So this is quite unlikely that we are dealing with an endocrinopathy causing the hypokalemia and mild hypertension. PLAN OF MANAGEMENT: We will obtain a plasma renin activity and a plasma aldosterone level just for baseline academic knowledge and obtain serial chemistries accordingly. We will advise the patient to go back to her primary physician and may be switch her over from diuretic therapy to other therapeutic options for hypertension control. We will follow. Carolina Goldman MD
[2018-11-05 08:22] LABS: ALB/GLOB RATIO 1.2 (1.0-2.1); ALBUMIN 3.7 g/dL (3.5-5.0); ALT/SGPT 210 U/L (9-52); AST/SGOT 106 U/L (14-36); BLOOD UREA NITROGEN 12 mg/dl (7-17); CALCIUM 9.7 mg/dL (8.4-10.2); GFR NON-AFRICAN AMERICAN > 60
--- NOTE | 2018-11-05 11:30 | PCM.PYCHPN ---
Psychiatric Progress Note - Psychiatric Progress Note Patient seen today, length of contact: chart reviewed case discussed with team Patient Chief Complaint: I feel numb Problems Identified/Issues Discussed: pt seen in bed , continues to isolate herself in her room, partial eye contact speech soft and slow , reported feeling numb and unable to handle the emotions of loosing her son, pt anhedonic , with low energy and poor motivation , supportive therapy provided, encouraged to attend groups, discussed increasing the dose of effexor pt denied any current active thoughts of self harm on the unit Medical Problems: about previous seven hospitalizations at [facility] seven previous suicidal attempts by overdose DSM 5 Symptoms Update: bipolar disorder depressed bereavement Medication Change: Yes (increase effexor ) Medical Record Reviewed: Yes Mental Status Examination - Cognitive Function Orientation: Person, Place, Situation, Time Memory: Intact Attention: WNL Concentration: WNL Association: WNL Fund of Knowledge: WNL - Mood Mood: Depressed, Anxious - Affect Affect: Constricted, Depressed - Speech Speech: Soft - Formal Thought Process Formal Thought Process: No Impairment - Suicidal Ideation Suicidal Ideation: No - Homicidal Ideation Homicidal Ideation: No Goal/Treatment Plan - Goal/Treatment Plan Need for Continued Stay: Remain at risks for inpatient hospitalization, Severe depression anxiety, Discharge may exacerbated symptoms Progress Toward Problem(s) and Goals/Treatment Plan: increase [id number] mg daily klonopin 0.5mg bid and 0.5mg qhs buspar 10mg tid abilify 10mg remeron 15 mg qhs pt will be monitored by staff and supportive therapy will be provided , monitored for any changes in mental status Estimated Date of D/C: 11/03/18
[2018-11-05] MEDS: Venlafaxine 75 mg ER Cap PO SCH (12:13)
[2018-11-05] MEDS: Cholestyramine 4 gm/Pkt UD PO SCH ×2 (12:14→18:05)
--- NOTE | 2018-11-06 00:41 | PN ---
DATE: 11/05/2018 ENDOCRINOLOGY FOLLOWUP NOTE LOCATION: Room 316, Psychiatry. SUBJECTIVE: This is a 58-year-old female with recent admission to the psychiatric unit for closer evaluation and management of recent major depressive disorder with suicidal ideations and now being presented for . LABORATORY DATA: Repeat chemistries today showed BUN of 12, sodium 142, potassium 3.4, chloride 104, CO2 of 25, glucose 93, and creatinine 0.7. Her thyroid studies showed a T4 of 9.7 with a TSH of 2.6. ASSESSMENT: The patient has persistent hypokalemia, most likely multifactorial with recent loose watery diarrhea from a viral syndrome and concomitant usage of diuretic therapy with furosemide hypokalemia as noted thereof. It is quite unlikely that we are dealing with primary hyperaldosteronism at this time. PLAN OF MANAGEMENT: We will await results of the plasma renin and plasma aldosterone levels lab today as noted. We will continue the potassium supplementation as ordered and supplement accordingly as needed. We will also obtain serial chemistries and supplement accordingly as needed. Carolina Goldman MD
[2018-11-06] MEDS: Venlafaxine 150 mg ER Cap PO SCH (10:12)
[2018-11-06] MEDS: Cholestyramine 4 gm/Pkt UD PO SCH ×2 (10:13→19:55)
--- NOTE | 2018-11-06 12:49 | PCM.PYCHPN ---
Psychiatric Progress Note - Psychiatric Progress Note Patient seen today, length of contact: chart reviewed case discussed with team Patient Chief Complaint: I feel numb Problems Identified/Issues Discussed: pt evaluated with treatment team, continues to report feeling numb, not sure how to deal with her loss, spending most of her time in bed with very limited interaction with her peers and with staff, poor appetite and low energy ,supportive therapy provided, encouraged pt to attempt to attend groups, no reported side effects with the increase in effexor, pt denied active thoughts of self harm, denied perceptual disturbances Medical Problems: about previous seven hospitalizations at [facility] seven previous suicidal attempts by overdose DSM 5 Symptoms Update: bipola disorder depressed bereavement Medication Change: No (increase effexor ) Medical Record Reviewed: Yes Mental Status Examination - Cognitive Function Orientation: Person, Place, Situation, Time Memory: Intact Attention: WNL Concentration: Poor Association: WNL Fund of Knowledge: WNL - Mood Mood: Depressed, Anxious - Affect Affect: Constricted, Depressed - Speech Speech: Soft - Formal Thought Process Formal Thought Process: No Impairment - Suicidal Ideation Suicidal Ideation: No - Homicidal Ideation Homicidal Ideation: No Goal/Treatment Plan - Goal/Treatment Plan Need for Continued Stay: Remain at risks for inpatient hospitalization, Severe depression anxiety, Discharge may exacerbated symptoms Progress Toward Problem(s) and Goals/Treatment Plan: [id number] mg daily klonopin 0.5mg bid and 0.5mg qhs buspar 10mg tid abilify 10mg remeron 15 mg qhs pt will be monitored by staff and supportive therapy will be provided , monitored for any changes in mental status Estimated Date of D/C: 11/03/18
--- NOTE | 2018-11-07 03:08 | PN ---
DATE: 11/06/2018 ENDOCRINOLOGY FOLLOWUP NOTE LOCATION: Room 316, Psychiatry. SUBJECTIVE: This is a 58-year-old female with major depressive disorder presenting here with suicidal ideations and possible plan for a drug overdose with underlying generalized anxiety state and is now admitted to Psychiatry for closer evaluation and management. LABORATORY DATA: Her potassium levels have been in the low side of normal with the latest chemistry showed a BUN of 12, sodium 142, potassium 3.4, chloride 104, CO2 of 25, glucose 93, and creatinine is 0.7. She also has slightly labile blood pressure monitoring as noted. There is also significant usage of diuretic therapy for hypertension control and recent loose watery diarrhea contributing to the persistent hypokalemia as noted thereof. The possibility of primary hyperaldosteronism was brought in, although extremely rare and unlikely has been raised accordingly because of the patient' s clinical state as noted. There is also significant history of recent loose watery diarrhea with previous usage of diuretic therapy with furosemide medications prior to this admission as admitted by the patient to me yesterday. We will obtain serial chemistries and supplement accordingly as needed. We are also awaiting the reports of the plasma renin and plasma aldosterone levels which will exclude the possibility of the quite rare of any underlying endocrinopathy disease. We will follow with you. Carolina Goldman MD
[2018-11-07 07:37] LABS: ALB/GLOB RATIO 1.2 (1.0-2.1); ALBUMIN 3.8 g/dL (3.5-5.0); ALT/SGPT 337 U/L (9-52); AST/SGOT 143 U/L (14-36); BLOOD UREA NITROGEN 10 mg/dl (7-17); CALCIUM 9.7 mg/dL (8.4-10.2); GFR NON-AFRICAN AMERICAN > 60
[2018-11-07] MEDS: Venlafaxine 150 mg ER Cap PO SCH (09:43)
[2018-11-07] MEDS: Cholestyramine 4 gm/Pkt UD PO SCH ×2 (09:45→17:46)
--- NOTE | 2018-11-07 13:42 | PN ---
DATE: 11/06/2018 SUBJECTIVE: She was not in any cardiopulmonary distress. PHYSICAL EXAMINATION: VITAL SIGNS: Blood pressure 151/84, temperature 97.7, respiratory rate 20 and pulse 94. HEENT: Pupils equal, reactive to light. Normal-appearing mucosa of the conjunctivae, oropharynx and nasal membrane mucosa. NECK: Supple. No JVD. No carotid bruit. No lymph node. No thyromegaly. CHEST AND LUNGS: Bilateral symmetrical expansion. Good air exchange. No rales. No rhonchi. CARDIOVASCULAR SYSTEM: PMI not localized. S1, S2. No additional sounds. ABDOMEN: Normoactive bowel sounds. No tenderness. No organomegaly. No masses. EXTREMITIES: No cyanosis. No clubbing. No edema. [employer]: Alert, awake, oriented x2. No neurological deficit could be appreciated. ASSESSMENT AND PLAN: Hypertension, hypokalemia, urinary tract infection. Continue monitoring the electrolytes. Follow endocrinology recommendations regarding the workup sent, elevated liver enzymes likely secondary to medications. We will consult Psychiatry regarding the medication that could be having hepatotoxicity. Liz Everett MD
--- NOTE | 2018-11-08 01:41 | PN ---
DATE: 11/07/2018 ENDOCRINOLOGY FOLLOWUP NOTE LOCATION: Psychiatry room 316. This is a 58-year-old female, presenting here with major depressive disorder and supervening suicidal ideations and is now being followed closely for metabolic management of persistent hypokalemia although extremely mild as noted otherwise. Her latest chemistries today showed a BUN of 10, sodium 143, potassium 3.6, chloride 104, CO2 of 28, glucose 100, and creatinine 0.7. She has slightly elevated liver transaminases as noted. The plasma aldosterone and renin activities are still pending at this time. So for now, we will continue the same present medical management with no need for any kind of endocrine evaluation and intervention. We are awaiting the results of the plasma renin and plasma aldosterone levels as ordered, although quite unlikely that we are actually dealing with primary hyperaldosteronism and is most likely related to the recent loose watery diarrhea and diuretic usage of furosemide medications. We will continue the potassium supplementation and serial chemistries accordingly. Carolina Goldman MD
[2018-11-08 02:13] LABS: ALDO/PRA RATIO 9.2 Ratio (0.9-28.9)
[2018-11-08 07:56] LABS: ALB/GLOB RATIO 1.3 (1.0-2.1); ALBUMIN 3.9 g/dL (3.5-5.0); BILIRUBIN,DIRECT 0.2 mg/ml (0.0-0.4)
--- NOTE | 2018-11-08 08:37 | PCM.PYCHPN ---
Psychiatric Progress Note - Psychiatric Progress Note Patient seen today, length of contact: Pt evaluated, case discussed w/ team, chart reviewed Patient Chief Complaint: Depression Problems Identified/Issues Discussed: Patient continues to report feeling depressed w/ low energy, low mood, low motivation and constricted affect. She reports poor appetite. No AH/VH/SI/HI/paranoia/delusions. No adverse effects to medications reported. Medication Change: No Medical Record Reviewed: Yes Consults ordered or reviewed: Medicine Mental Status Examination - Cognitive Function Orientation: Person, Place, Situation, Time Memory: Intact Attention: WNL Concentration: Poor Association: WNL Fund of Knowledge: WN Decription of patient's judgement and insights: Fair I/J - Mood Mood: Depressed, Anxious - Affect Affect: Constricted, Depressed - Speech Speech: Soft - Formal Thought Process Formal Thought Process: No Impairment Psychotic Thoughts and Behaviors: NO AH/VH/paranoia/delusions - Suicidal Ideation Suicidal Ideation: No - Homicidal Ideation Homicidal Ideation: No Goal/Treatment Plan - Goal/Treatment Plan Need for Continued Stay: Remain at risks for inpatient hospitalization, Severe depression anxiety, Discharge may exacerbated symptoms Progress Toward Problem(s) and Goals/Treatment Plan: -Continue current medications -Individual and group therapy -Psychoeducation -Disposition planning
[2018-11-08] MEDS: Venlafaxine 150 mg ER Cap PO SCH (10:35)
[2018-11-08] MEDS: Cholestyramine 4 gm/Pkt UD PO SCH ×3 (10:36→16:54)
--- NOTE | 2018-11-08 11:19 | PN ---
DATE: 11/08/2018 LOCATION: 316. SUBJECTIVE: This is a 58-year-old female with major depressive disorder, admitted here with suicidal ideations and currently undergoing closer psychiatric evaluation and management. She is also being followed closely for metabolic workup and management of possible hyperaldosteronism which is quite unlikely considering her metabolic response over the last week or so as noted thereof. Her latest chemistry showed a BUN of 10, sodium 143, potassium 3.6, chloride 104, CO2 of 28, glucose 100, and creatinine 0.7. Her liver transaminases are elevated and there is always a possibility of medication-related elevations thereof. Her blood pressure has stabilized at 120 to 130 systolic over the past week or so as noted. Usually, when we are dealing with primary hyperaldosteronism, we have patients with refractory hypertension despite the use of 3 to 5 antihypertensive medications thereof. Moreover, the hypokalemic levels are extremely low with values below 2 mg/dL. She previously had diuretic therapy for hypertension control and also recent loose watery diarrhea which could all have contributed to the initial hypokalemia as noted. We will obtain serial chemistries and supplement accordingly as needed. We are awaiting the results of the plasma renin and plasma aldosterone levels as noted. We will follow. Carolina Goldman MD
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
--- NOTE | 2018-11-08 15:33 | US ---
HISTORY: elevated liver functions 11/07/18 labs COMPARISON: None available. TECHNIQUE: Sonographic evaluation of the abdomen. FINDINGS: Examination limited by habitus and condition. LIVER: Measures 16.2 cm in sagittal dimension. Indeterminate 1.5 x 2.1 x 1.5 cm and 1.7 x 1.8 x 1.3 cm hypoechoic lesions. The main portal vein appears patent with normal directional flow. No intrahepatic bile duct dilatation. GALLBLADDER: Cholelithiasis. Irregular echogenic material within the gallbladder lumen without posterior acoustic shadowing. No gallbladder wall thickening. Negative sonographic Moran's sign as assessed by the commercial loan coordinator. COMMON BILE DUCT: Measures 6 mm. PANCREAS: Not well visualized. RIGHT KIDNEY: Measures 10.6 x 5.9 x 5.8 cm. No obstructing calculus or hydronephrosis identified. LEFT KIDNEY: Measures 10.5 x 4.9 x 4.5 cm. No obstructing calculus or hydronephrosis identified SPLEEN: Measures approximately 10.5 cm. AORTA: Limited views appear unremarkable. IVC: Limited views appear unremarkable. OTHER FINDINGS: None. IMPRESSION: Limited study. Cholelithiasis. Irregular echogenic material within the gallbladder lumen without posterior acoustic shadowing, possibly tumefactive sludge. No gallbladder wall thickening. Negative sonographic Moran's sign as assessed by the commercial loan coordinator. Correlate clinically. Indeterminate 1.5 x 2.1 x 1.5 cm and 1.7 x 1.8 x 1.3 cm hypoechoic lesions. Dedicated cross-sectional imaging may be considered for further evaluation.
[2018-11-08 17:21] LABS: HEPATITIS B SURFACE AG Negative (NEGATIVE)
[2018-11-08 17:26] LABS: HEPATITIS A IGM NEGATIVE (NEGATIVE)
[2018-11-08 17:31] LABS: HEPATITIS B CORE AB NEGATIVE (NEGATIVE)
[2018-11-08 17:39] LABS: HEPATITIS C ANTIBODY NEGATIVE (NEGATIVE)
--- NOTE | 2018-11-08 23:20 | PN ---
DATE: 11/08/2018 SUBJECTIVE: The patient was seen today, 11/08/2018. She is not in any cardiopulmonary distress. PHYSICAL EXAMINATION: VITAL SIGNS: Blood pressure 127/81, temperature 98.1, respiratory rate 19, and pulse 117. HEENT: Pupils equal, reactive to light. Normal-appearing mucosa of the conjunctivae, oropharyngeal, and nasal membrane mucosa. NECK: Supple. No JVD. No carotid bruit. No lymph node. No thyromegaly. CHEST AND LUNGS: Bilateral symmetrical expansion. Good air exchange. No rales, no rhonchi. CARDIOVASCULAR: PMI not localized. S1, S2. No additional sounds. ABDOMEN: Normoactive bowel sounds. No tenderness. No organomegaly. No masses. EXTREMITIES: No cyanosis, no clubbing, no edema. HOME DEPOT REP: Alert, awake, oriented x2. No neurological deficit could be appreciated. ASSESSMENT: Elevated liver enzymes of unknown etiology. Abdominal ultrasound showed cholelithiasis with irregular echogenic material within the gallbladder lumen without posterior or acoustic shadowing possibly sludge. No gallbladder was thickening. Negative sonographic Moran's sign as assessed by the medicaid specialist. There are hypoechoic lesions in the liver. There is no common bile duct dilatation. PLAN: Follow GI recommendations and we will monitor liver function tests. Liz Everett MD
[2018-11-09] MEDS: Venlafaxine 150 mg ER Cap PO SCH (09:11)
[2018-11-09] MEDS: Cholestyramine 4 gm/Pkt UD PO SCH ×2 (09:16→16:42)
[2018-11-09 10:28] VITALS: RESP 20
--- NOTE | 2018-11-09 14:09 | PCM.PYCHPN ---
Psychiatric Progress Note - Psychiatric Progress Note Patient seen today, length of contact: Pt evaluated, case discussed w/ team, chart reviewed Patient Chief Complaint: I met my son , it was emotional Problems Identified/Issues Discussed: pt evaluated seen in day room, observed to be interacting more with other peers, affect less constricted, reported had an emotional meeting with her son and his girl friend yet reported to feel better after the meeting as she had conflicting emotions about meeting him, pt reported improved sleep but continues to have poor appetite, discussed with her the results of her liver function tests and will follow up on results of ultrasound pt denied side effects of medications, denied active thoughts of self harm Medical Problems: about previous seven hospitalizations at [facility] seven previous suicidal attempts by overdose Medication Change: Yes (decrease klonopin) Medical Record Reviewed: Yes Mental Status Examination - Cognitive Function Orientation: Person, Place, Situation, Time Memory: Intact Attention: WNL Concentration: Poor Association: WNL Fund of Knowledge: WNL - Mood Mood: Depressed, Anxious - Affect Affect: Constricted, Depressed - Speech Speech: Soft - Formal Thought Process Formal Thought Process: No Impairment - Suicidal Ideation Suicidal Ideation: No - Homicidal Ideation Homicidal Ideation: No Goal/Treatment Plan - Goal/Treatment Plan Need for Continued Stay: Remain at risks for inpatient hospitalization, Severe depression anxiety, Discharge may exacerbated symptoms Progress Toward Problem(s) and Goals/Treatment Plan: [id number] mg daily decrease klonopin 0.5mg daily and 0.5mg qhs buspar 10mg tid abilify 10mg remeron 15 mg qhs pt will be monitored by staff and supportive therapy will be provided , monitored for any changes in mental status Estimated Date of D/C: 11/13/18
--- NOTE | 2018-11-10 01:19 | PN ---
DATE: 11/09/2018 LOCATION: In room 316. SUBJECTIVE: This is a 58-year-old female with major depressive disorder and recent suicidal ideations, currently receiving psychiatric evaluation and management and is being followed closely also for metabolic management. Her repeat chemistry showed a BUN of 10, sodium 143, potassium 3.6, chloride 104, CO2 of 28, glucose 100, and creatinine 0.7. Her aldosterone level was reported as 11 with a plasma renin activity value of 1.19 and a ratio of the aldosterone/renin levels of 9.2, all of which are optimal and normal as expected thereof. This already in itself exclude the possibility of primary hyperaldosteronism as noted. We will obtain serial chemistries and supplement accordingly as needed. We will follow. Carolina Goldman MD
[2018-11-10] MEDS: Venlafaxine 150 mg ER Cap PO SCH (11:09)
[2018-11-10] MEDS: Cholestyramine 4 gm/Pkt UD PO SCH ×2 (11:16→17:29)
--- NOTE | 2018-11-10 13:02 | PCM.PYCHPN ---
Psychiatric Progress Note - Psychiatric Progress Note Patient seen today, length of contact: Pt evaluated, case discussed w/ team, chart reviewed Patient Chief Complaint: I am sleeping better Problems Identified/Issues Discussed: pt evaluated seen in day room, less isolative, interacting more with other peers and staff , affect less constricted, reported improved sleep continues to have poor appetite, pt denied side effects of medications, denied active thoughts of self harm Medical Problems: about previous seven hospitalizations at [facility] seven previous suicidal attempts by overdose DSM 5 Symptoms Update: bipolar disorder bereavement Medication Change: No (decrease klonopin) Medical Record Reviewed: Yes Mental Status Examination - Cognitive Function Orientation: Person, Place, Situation, Time Memory: Intact Attention: WNL Concentration: WNL Association: WNL Fund of Knowledge: WNL - Mood Mood: Depressed, Anxious - Affect Affect: Constricted, Depressed - Speech Speech: Soft - Formal Thought Process Formal Thought Process: No Impairment - Suicidal Ideation Suicidal Ideation: No - Homicidal Ideation Homicidal Ideation: No Goal/Treatment Plan - Goal/Treatment Plan Need for Continued Stay: Remain at risks for inpatient hospitalization, Severe depression anxiety, Discharge may exacerbated symptoms Progress Toward Problem(s) and Goals/Treatment Plan: [id number] mg daily klonopin 0.5mg daily and 0.5mg qhs buspar 10mg tid abilify 10mg remeron 15 mg qhs older adult social work specialist to arrange for family meeting to discuss discharge planning Estimated Date of D/C: 11/13/18
[2018-11-10] MEDS: VALTREX 500 MG PO SCH (13:46)
--- NOTE | 2018-11-10 19:28 | CP.PCM.PN ---
Subjective - Date & Time of Evaluation Date of Evaluation: 11/10/18 Time of Evaluation: 14:00 - Subjective Subjective: Patient without complaint. No LFTs done today Objective - Vital Signs/Intake and Output Vital Signs (last 24 hours): Temp Pulse Resp BP Pulse Ox 97.2 F L 109 H 20 157/89 H 96 11/10/18 18:11 11/10/18 18:11 11/10/18 18:11 11/10/18 18:11 10/23/18 02:29 - Medications Medications: Current Medications Acetaminophen (Tylenol 325mg Tab) 650 mg PO Q4 PRN PRN Reason: pain (4-7) Al Hydrox/Mg Hydrox/Simethicone (Maalox Plus 30 Ml) 30 ml PO Q4 PRN PRN Reason: Dyspepsia Aripiprazole (Abilify) 10 mg PO DAILY [facility] Last Admin: 11/10/18 11:09 Dose: 10 mg Buspirone HCl (Buspar) 10 mg PO TID [facility] Last Admin: 11/10/18 17:27 Dose: 10 mg Cholestyramine Resin (Questran) 4 gm PO BID [facility] Last Admin: 11/10/18 17:29 Dose: Not Given Clonazepam (Klonopin) 0.5 mg PO HS [facility] Last Admin: 11/09/18 21:07 Dose: 0.5 mg Clonazepam (Klonopin) 0.5 mg PO DAILY [facility] Last Admin: 11/10/18 11:09 Dose: 0.5 mg Diphenhydramine HCl (Benadryl) 50 mg IM Q6 PRN PRN Reason: Extrapyramidal S/S Unable PO Diphenhydramine HCl (Benadryl) 50 mg PO Q6 PRN PRN Reason: Extrapyramidal Symptoms Diphenhydramine HCl (Benadryl) 50 mg PO HS PRN PRN Reason: Sleep Haloperidol (Haldol) 5 mg PO Q4 PRN PRN Reason: Agitation Haloperidol Lactate (Haldol) 5 mg IM Q4 PRN PRN Reason: Agitation, Unable to Take PO Home Med (Valtrex) 500 mg PO DAILY [facility] Last Admin: 11/10/18 13:46 Dose: 500 mg Lorazepam (Ativan) 1 mg PO Q6 PRN PRN Reason: Anxiety Magnesium Hydroxide (Milk Of Magnesia) 30 ml PO HS PRN PRN Reason: Constipation Mirtazapine (Remeron) 15 mg PO HS [facility] Last Admin: 11/09/18 21:07 Dose: 15 mg Venlafaxine HCl (Effexor Xr) 150 mg PO DAILY [facility] Last Admin: 11/10/18 11:09 Dose: 150 mg Zolpidem Tartrate (Ambien) 5 mg PO HS PRN PRN Reason: for insomnia Last Admin: 11/09/18 21:54 Dose: 5 mg - Labs Labs: 10/23/18 08:06 11/07/18 06:30 - Head Exam Head Exam: ATRAUMATIC - Eye Exam Eye Exam: Normal appearance Pupil Exam: NORMAL ACCOMODATION - ENT Exam ENT Exam: Mucous Membranes Moist - Neck Exam Neck Exam: Full ROM - Respiratory Exam Respiratory Exam: Clear to Ausculation Bilateral - Cardiovascular Exam Cardiovascular Exam: REGULAR RHYTHM, +S1, +S2 - GI/Abdominal Exam GI & Abdominal Exam: Soft, Normal Bowel Sounds. absent: Tenderness Assessment and Plan (1) Elevated LFTs Assessment & Plan: Had abnormal abdominal sono demonstrating 1.5 cm hypodense lesions. Patient states she had abdominal CT within the past year. Will request old records. LFTs in the morning. Status: Acute
--- NOTE | 2018-11-10 20:55 | PN ---
DATE: 11/10/2018 ENDOCRINOLOGY FOLLOWUP NOTE LOCATION: Room 316, Psychiatry. SUBJECTIVE: This is a 58-year-old female, currently undergoing closer psychiatric evaluation and management for recent suicidal ideations on the background of major depression as noted. She is also being followed closely for metabolic workup and management for possible hyperaldosteronism. LABORATORY DATA: Her latest chemistry showed a BUN of 10, sodium 143, potassium 3.6, chloride 104, CO2 of 28, glucose 100 and creatinine 0.7. Her aldosterone levels were reported as normal with a plasma aldosterone of 11 and a plasma renin of 1.19 and an zulma/renin ratio of 9.2, excluding the possibility of primary hyperaldosteronism. PLAN OF MANAGEMENT: We will obtain serial chemistries and should expect her potassium levels to normalize accordingly. Her loose watery diarrhea subsided at this time and she has been off diuretic therapy since admission. The aforementioned factors could contribute to the initial presentation of moderate hypokalemia that has improved accordingly as noted. We will follow. Carolina Goldman MD
--- NOTE | 2018-11-10 23:57 | PN ---
DATE: 11/10/2018 SUBJECTIVE: The patient is seen today, 11/10/2018. She is not in any cardiopulmonary distress. PHYSICAL EXAMINATION: VITAL SIGNS: Blood pressure is 157/89, temperature 97.2, respiratory rate 20, and pulse 109. HEENT: Pupils equal and reactive to light. Normal-appearing mucosa of the conjunctivae, oropharynx, and nasal membrane mucosa. NECK: Supple. No JVD. No carotid bruit. No lymph node. No thyromegaly. CHEST AND LUNGS: Bilateral symmetrical expansion. Good air exchange. No rales, no rhonchi. CARDIOVASCULAR SYSTEM: PMI not localized. S1, S2. No additional sounds. ABDOMEN: Normoactive bowel sounds. No tenderness. No organomegaly. No masses. EXTREMITIES: No cyanosis, no clubbing, no edema. CENTRAL NERVOUS SYSTEM: Alert, awake, oriented x2. No neurological deficit could be appreciated. ASSESSMENT: Elevated liver enzymes of unknown etiology. PLAN: Discussed the patient's condition with Dr. to review the old medications for the possibility of any medications with hepatotoxicity. We will repeat liver function test in the morning. Liz Everett MD
[2018-11-11 07:24] LABS: ALB/GLOB RATIO 1.2 (1.0-2.1); ALBUMIN 3.9 g/dL (3.5-5.0); ALT/SGPT 355 U/L (9-52); AST/SGOT 132 U/L (14-36); BILIRUBIN,DIRECT 0.1 mg/ml (0.0-0.4); BLOOD UREA NITROGEN 8 mg/dl (7-17); CALCIUM 9.8 mg/dL (8.4-10.2); GFR NON-AFRICAN AMERICAN > 60
[2018-11-11] MEDS: Venlafaxine 150 mg ER Cap PO SCH (08:53)
[2018-11-11] MEDS: VALTREX 500 MG PO SCH (08:53)
[2018-11-11] MEDS: Cholestyramine 4 gm/Pkt UD PO SCH ×2 (08:57→17:23)
--- NOTE | 2018-11-11 15:06 | PCM.PYCHPN ---
Psychiatric Progress Note - Psychiatric Progress Note Patient seen today, length of contact: Pt evaluated, case discussed w/ team, chart reviewed Patient Chief Complaint: I am ready to be home with my Problems Identified/Issues Discussed: pt evaluated , seen in day room, presenting with brighter affect, stated looking forward to be home and to be with her , noted to have improved sleep and little improvement in appetite, discussed with pt the results of the ultrasound with possible gradual changes in her medications due to the abnormal liver functions also discussed with GIT results, possible CT scan will be done pt denied any current thoughts of self harm, denied perceptual disturbances Medical Problems: about previous seven hospitalizations at [facility] seven previous suicidal attempts by overdose DSM 5 Symptoms Update: bipolar disorder depressed Medication Change: No (decrease klonopin) Medical Record Reviewed: Yes Mental Status Examination - Cognitive Function Orientation: Person, Place, Situation, Time Memory: Intact Attention: WNL Concentration: WNL Association: WNL Fund of Knowledge: WNL - Mood Mood: Depressed, Anxious - Affect Affect: Constricted, Depressed - Speech Speech: Soft - Formal Thought Process Formal Thought Process: No Impairment - Suicidal Ideation Suicidal Ideation: No - Homicidal Ideation Homicidal Ideation: No Goal/Treatment Plan - Goal/Treatment Plan Need for Continued Stay: Remain at risks for inpatient hospitalization, Severe depression anxiety, Discharge may exacerbated symptoms Progress Toward Problem(s) and Goals/Treatment Plan: [id number] mg daily decrease klonopin 0.25 mg bid and abilify to 5mg daily as a remote possible cause for liver injury remeron 15 mg qhs socially responsible investment adviser to arrange for family meeting to discuss discharge planning Estimated Date of D/C: 11/13/18
[2018-11-11] MEDS ORDERED: Iohexol 240 (50 ml) PO ONE (21:37)
--- NOTE | 2018-11-11 23:05 | CP.PCM.PN ---
Subjective - Date & Time of Evaluation Date of Evaluation: 11/11/18 Time of Evaluation: 14:00 - Subjective Subjective: Patient with no new complaints. LFT's remain high Objective - Vital Signs/Intake and Output Vital Signs (last 24 hours): Temp Pulse Resp BP Pulse Ox 97.2 F L 103 H 20 129/77 96 11/11/18 16:14 11/11/18 16:14 11/11/18 16:14 11/11/18 16:14 10/23/18 02:29 - Medications Medications: Current Medications Al Hydrox/Mg Hydrox/Simethicone (Maalox Plus 30 Ml) 30 ml PO Q4 PRN PRN Reason: Dyspepsia Aripiprazole (Abilify) 5 mg PO DAILY [facility] Buspirone HCl (Buspar) 10 mg PO TID [facility] Last Admin: 11/11/18 17:23 Dose: 10 mg Cholestyramine Resin (Questran) 4 gm PO BID [facility] Last Admin: 11/11/18 17:23 Dose: Not Given Clonazepam (Klonopin) 0.25 mg PO HS [facility] Last Admin: 11/11/18 21:07 Dose: 0.25 mg Clonazepam (Klonopin) 0.25 mg PO DAILY [facility] Diphenhydramine HCl (Benadryl) 50 mg IM Q6 PRN PRN Reason: Extrapyramidal S/S Unable PO Diphenhydramine HCl (Benadryl) 50 mg PO Q6 PRN PRN Reason: Extrapyramidal Symptoms Diphenhydramine HCl (Benadryl) 50 mg PO HS PRN PRN Reason: Sleep Haloperidol (Haldol) 5 mg PO Q4 PRN PRN Reason: Agitation Haloperidol Lactate (Haldol) 5 mg IM Q4 PRN PRN Reason: Agitation, Unable to Take PO Home Med (Valtrex) 500 mg PO DAILY [facility] Last Admin: 11/11/18 08:53 Dose: 500 mg Ibuprofen (Motrin Tab) 600 mg PO Q8 PRN PRN Reason: Pain, moderate (4-7) Lorazepam (Ativan) 1 mg PO Q6 PRN PRN Reason: Anxiety Magnesium Hydroxide (Milk Of Magnesia) 30 ml PO HS PRN PRN Reason: Constipation Mirtazapine (Remeron) 15 mg PO HS [facility] Last Admin: 11/11/18 21:06 Dose: 15 mg Venlafaxine HCl (Effexor Xr) 150 mg PO DAILY [facility] Last Admin: 11/11/18 08:53 Dose: 150 mg Zolpidem Tartrate (Ambien) 5 mg PO HS PRN PRN Reason: for insomnia Last Admin: 11/11/18 21:06 Dose: 5 mg - Labs Labs: 10/23/18 08:06 11/11/18 06:00 - Head Exam Head Exam: ATRAUMATIC - Eye Exam Eye Exam: Normal appearance Pupil Exam: NORMAL ACCOMODATION - Respiratory Exam Respiratory Exam: Clear to Ausculation Bilateral - Cardiovascular Exam Cardiovascular Exam: REGULAR RHYTHM - GI/Abdominal Exam GI & Abdominal Exam: Normal Bowel Sounds. absent: Tenderness Assessment and Plan (1) Elevated LFTs Assessment & Plan: Had abnormal sono.CT ordered. Status: Acute
--- NOTE | 2018-11-12 03:27 | PN ---
DATE: 11/11/2018 ENDOCRINOLOGY FOLLOWUP NOTE LOCATION: Room 316, Psychiatry. This is a 58-year-old female with recent admission from evaluation of suicidal ideation on the background of major depressive disorder and is now being followed closely for metabolic management and endocrine workup. the presence of underlying primary hyperaldosteronism as noted. Her plasma aldosterone level was 11 with a plasma renin activity of 1.19 and ratio of 9.2 which was normal. Her potassium level has improved now, and the latest potassium is 3.8 as noted; however, her liver transaminases remained elevated as noted. Serum cortisol was 19.5. So at this time, we will continue the present medical management and the serial chemistries to be obtained accordingly. Carolina Goldman MD
[2018-11-12] MEDS: Venlafaxine 150 mg ER Cap PO SCH (09:40)
[2018-11-12] MEDS: VALTREX 500 MG PO SCH (09:40)
[2018-11-12] MEDS: Cholestyramine 4 gm/Pkt UD PO SCH ×2 (09:46→19:07)
[2018-11-12] MEDS ORDERED: Iohexol 300 100 ML IJ ONE (13:40)
[2018-11-12] MEDS ORDERED: Sodium Chloride 0.9% 50 ML IV ONE (13:41)
--- NOTE | 2018-11-12 14:24 | PCM.PYCHPN ---
Psychiatric Progress Note - Psychiatric Progress Note Patient seen today, length of contact: Pt evaluated, case discussed w/ team, chart reviewed Patient Chief Complaint: I feel better every day Problems Identified/Issues Discussed: pt evaluated , seen in day room, reported improved sleep and slight improvement in appetite , affect relatively brighter and she is more interactive with staff, stated looking forward to be home and to be with her , discussed with pt the need for abdominal CT as documented by GIT and need to follow up on discharge with PMD , DISCUSSED DISCONTIUING KLONOPIN AND LOWERING ABILIFY REMOTE POSSIBILITY TO CAUS ELEVATED LFT'S pt denied any current thoughts of self harm, denied perceptual disturbances Medical Problems: about previous seven hospitalizations at [facility] seven previous suicidal attempts by overdose Medication Change: Yes (discontinue klonopin) Medical Record Reviewed: Yes Mental Status Examination - Cognitive Function Orientation: Person, Place, Situation, Time Memory: Intact Attention: WNL Concentration: WNL Association: WNL Fund of Knowledge: WNL - Mood Mood: Depressed, Anxious - Affect Affect: Constricted, Depressed - Speech Speech: Soft - Formal Thought Process Formal Thought Process: No Impairment - Suicidal Ideation Suicidal Ideation: No - Homicidal Ideation Homicidal Ideation: No Goal/Treatment Plan - Goal/Treatment Plan Need for Continued Stay: Remain at risks for inpatient hospitalization, Severe depression anxiety, Discharge may exacerbated symptoms Progress Toward Problem(s) and Goals/Treatment Plan: [id number] mg daily DISCONTINUE klonopin abilify 5mg daily remeron 15 mg qhs community mental health social worker to arrange for family meeting to discuss discharge planning Estimated Date of D/C: 11/13/18
--- NOTE | 2018-11-12 15:04 | CT ---
Date of service: 11/12/2018 PROCEDURE: CT Abdomen and Pelvis with contrast HISTORY: abnormal liver function test COMPARISON: None. TECHNIQUE: Contrast dose: 95 cc Omnipaque 300 Radiation dose: Total exam DLP = 909.96 mGy-cm. This CT exam was performed using one or more of the following dose reduction techniques: Automated exposure control, adjustment of the mA and/or kV according to patient size, and/or use of iterative reconstruction technique. FINDINGS: LOWER THORAX: Unremarkable. LIVER: Normal size and contour. Mild diminished attenuation of the liver relative to the spleen. This may represent fatty infiltration although evaluation with intravenous contrast is of questionable accuracy. There is a mass in the right lobe of the liver abutting the gallbladder fossa, measuring 4.2 x 3.5 cm. This mass shows nodular peripheral enhancement. The appearance is nonspecific but could reflect a hemangioma. This cannot be determined with certainty based upon imaging at 1 min time. There is a 2 cm mass near the dome of the right hepatic lobe, abutting the hepatic capsule, that is homogeneously intermediate attenuation. This could represent focal fatty sparing or a sonam neoplasm. There is probably mild focal fatty sparing noted about the gallbladder fossa, particularly on series 601, image 62. There is no biliary dilatation. The liver contour is smooth. GALLBLADDER AND BILE DUCTS: Unremarkable. PANCREAS: Unremarkable. No gross lesion or ductal dilatation. SPLEEN: Unremarkable. ADRENALS: Nonspecific 9 mm right adrenal mass. Statistically most likely an adrenal adenoma. KIDNEYS AND URETERS: Unremarkable. No hydronephrosis. No solid mass. VASCULATURE: Unremarkable. No aortic aneurysm. No aortic atherosclerotic calcification or mural plaque present. BOWEL: Unremarkable. No obstruction. No gross mural thickening. APPENDIX: Normal appendix. PERITONEUM: Unremarkable. No free fluid. No free air. LYMPH NODES: Unremarkable. No enlarged lymph nodes. BLADDER: Unremarkable. REPRODUCTIVE: Normal uterus BONES: No fracture. Grade 1 anterolisthesis at L5-S1 associated with bilateral L5 spondylolysis. OTHER FINDINGS: None. IMPRESSION: Possible fatty infiltration of the liver. 4.2 cm mass in the right lobe of the liver with nodular peripheral enhancement. This could reflect a hemangioma but its appearance is nonspecific on the basis of this single examination. A 2nd subcapsular masses noted in the more superior right hepatic lobe, anteriorly, measuring 2 cm. This could conceivably represent focal fatty sparing. No biliary obstruction. Consider further evaluation of the liver with pre and post gadolinium enhanced magnetic resonance imaging of the abdomen for evaluation of both hepatic steatosis, possible focal fatty sparing as well as multiphasic post gadolinium imaging of the questionable hemangioma.
--- NOTE | 2018-11-12 23:11 | PN ---
DATE: 11/12/2018 ENDOCRINOLOGY FOLLOWUP NOTE LOCATION: Room 316, Psychiatry. SUBJECTIVE: This is a 58-year-old female with major depressive disorder, presenting here with suicidal ideations and generalized anxiety and is now being followed closely for further psychiatric evaluation and management. Moreover, she also had initial presentations of hypokalemia that has since then improved biochemically as noted thereof. LABORATORY DATA: Her latest chemistry showed BUN of 8, sodium 142, potassium 3.8, chloride 100, CO2 of 31, glucose 97, and creatinine 0.8. ASSESSMENT AND PLAN: Her plasma aldosterone is 11 with a plasma renin activity of 1.14 and a ratio of 9.2, excluding the possibility of underlying primary hyperaldosteronism as noted. We will obtain serial chemistries and supplement accordingly as needed. We will follow. Carolina Goldman MD
--- NOTE | 2018-11-13 01:48 | CP.PCM.PN ---
Subjective - Date & Time of Evaluation Date of Evaluation: 11/19/18 Time of Evaluation: 16:00 - Subjective Subjective: Patient w/o complaint Objective - Vital Signs/Intake and Output Vital Signs (last 24 hours): Temp Pulse Resp BP Pulse Ox 97.8 F 100 H 20 132/75 96 11/12/18 09:00 11/12/18 09:00 11/12/18 09:00 11/12/18 09:00 10/23/18 02:29 - Medications Medications: Current Medications Al Hydrox/Mg Hydrox/Simethicone (Maalox Plus 30 Ml) 30 ml PO Q4 PRN PRN Reason: Dyspepsia Aripiprazole (Abilify) 5 mg PO DAILY [facility] Last Admin: 11/12/18 09:40 Dose: 5 mg Buspirone HCl (Buspar) 10 mg PO TID [facility] Last Admin: 11/12/18 19:05 Dose: 10 mg Diphenhydramine HCl (Benadryl) 50 mg IM Q6 PRN PRN Reason: Extrapyramidal S/S Unable PO Diphenhydramine HCl (Benadryl) 50 mg PO Q6 PRN PRN Reason: Extrapyramidal Symptoms Diphenhydramine HCl (Benadryl) 50 mg PO HS PRN PRN Reason: Sleep Haloperidol (Haldol) 5 mg PO Q4 PRN PRN Reason: Agitation Haloperidol Lactate (Haldol) 5 mg IM Q4 PRN PRN Reason: Agitation, Unable to Take PO Home Med (Valtrex) 500 mg PO DAILY [facility] Last Admin: 11/12/18 09:40 Dose: 500 mg Ibuprofen (Motrin Tab) 600 mg PO Q8 PRN PRN Reason: Pain, moderate (4-7) Lorazepam (Ativan) 1 mg PO Q6 PRN PRN Reason: Anxiety Magnesium Hydroxide (Milk Of Magnesia) 30 ml PO HS PRN PRN Reason: Constipation Mirtazapine (Remeron) 15 mg PO HS [facility] Last Admin: 11/12/18 21:16 Dose: 15 mg Venlafaxine HCl (Effexor Xr) 150 mg PO DAILY [facility] Last Admin: 11/12/18 09:40 Dose: 150 mg Zolpidem Tartrate (Ambien) 5 mg PO HS PRN PRN Reason: for insomnia Last Admin: 11/12/18 21:16 Dose: 5 mg - Labs Labs: 10/23/18 08:06 11/11/18 06:00 - Head Exam Head Exam: ATRAUMATIC - Eye Exam Eye Exam: Normal appearance - ENT Exam ENT Exam: Normal Exam - Neck Exam Neck Exam: Full ROM - Respiratory Exam Respiratory Exam: Clear to Ausculation Bilateral - Cardiovascular Exam Cardiovascular Exam: REGULAR RHYTHM - GI/Abdominal Exam GI & Abdominal Exam: Soft. absent: Tenderness Assessment and Plan (1) Elevated LFTs Assessment & Plan: CT with several areas of hypoattenuation in the liver. MRI as per radiology recommendation. The LFTs started rising during this hospitalization. Possibly medication induced. Will avoid altering psychiatric meds. Will hold cholestyramine for now. Status: Acute
--- NOTE | 2018-11-13 03:45 | PN ---
DATE: 11/12/2018 DAILY PROGRESS NOTE SUBJECTIVE: The patient is seen today, 11/12/2018. She is not in any cardiopulmonary distress. PHYSICAL EXAMINATION: VITAL SIGNS: Blood pressure 132/75, temperature 97.8, respiratory rate 20, and pulse 100. HEENT: Pupils are equal and reactive to light. Normal-appearing mucosa of the conjunctivae, oropharynx and nasal membrane mucosa. NECK: Supple. No JVD. No carotid bruit. No lymph node. No thyromegaly. CHEST AND LUNGS: Bilateral symmetrical expansion. Good air exchange. No rales. No rhonchi. CARDIOVASCULAR SYSTEM: PMI not localized. S1 and S2. No additional sounds. ABDOMEN: Normoactive bowel sounds. No tenderness. No organomegaly. No masses. EXTREMITIES: No cyanosis, no clubbing, no edema. CENTRAL NERVOUS SYSTEM: Alert, awake, oriented x2. No neurological deficit could be appreciated. CAT scan of the abdomen was done today and showed possible fatty infiltration of the liver. A 4.2-cm mass in the right lobe of the liver with no peripheral enhancement. This could represent hemangioma. A second sharp capsular mass is noted in the more superior right hepatic lobe anteriorly, measuring 2 cm. This could represent focal fatty sparing. MRI pre and post-contrast is recommended. PLAN: We ordered MRI of pre and post-contrast with multiphasic post-gadolinium imaging of the questionable hemangioma. Liz Everett MD
[2018-11-13] MEDS: Venlafaxine 150 mg ER Cap PO SCH (08:40)
[2018-11-13] MEDS: VALTREX 500 MG PO SCH (08:40)
[2018-11-13 09:17] VITALS: BP 140/79; PULSE 106; TEMP 98
--- NOTE | 2018-11-13 12:43 | PCM.PYCHDC ---
Mental Status Examination - Mental Status Examination Orientation: Person, Place, Situation Memory: Intact Mood: Neutral Affect: Broad Speech: Appropriate Attention: WNL Concentration: WNL Association: WNL Formal Thought Process: No Impairment Description of patient's judgement and insight: partial insight , fair judgment Psychotic Thoughts and Behaviors: pt denied perceptual disturbances, non elicited Suicidal Ideation: No Current Homicidal Ideation?: No Discharge Summary - Discharge Note Reason for Hospitalization: pt is 58 ys old female with previous psychiatric diagnosis of depression/ bipolar depression, presented to ER having suicidal ideation with plan to overdose on medication pt reported depressed since age 17, has about seven suicidal attempts by overdose, has been increasingly depressed as her mother in law suffers from stroke, moved in with them, her is unemployed with financial difficulties pt has been having poor sleep with early insomnia, poor appetite low energy, increased anxiety feeling hopeless and helpless reported having passive suicidal ideation without active plan on the unit, denied perceptual disturbances, urine toxicology positive for cannabis Consultations:: List each consultation separately and include: 1. Reason for request. 2. Findings. 3. Follow-up Summary of Hospital Course include:: 1. Description of specific treatment plan utilized for patients during their course of treatmen. 2. Summarize the time- course for resolution of acute symptoms and/or regressed behaviors. 3. Describe issues identified and worked on during hospitalization. 4. Describe medication utilized. 5. Describe medical problems identified and treated. 6. Reassessment of suicide risk Summary of Hospital Course: pt on admission presented with depressed mood and affect, poor sleep and poor appetite , pt was started on remeron pt also presented with anhedonia , low energy , poor motivation, , celexa was discontinued and pt started on effexor increased to 150 mg daily as pt presented with symptoms of hypomania irritability and anger diagnosis of bipolr II disorder was considered and pt was placed on abilify increased to 10mg while on the unit pt was notified by her that her son has overdosed and , supportive therapy for bereavement provided family meeting was held with and child welfare social worker team upon pt consent It was noted by internal medicine and GIT team that pt is having progressive i ncrease in liver functions lab results with possible cause of liver injury carefull review of medications/ psychotropics done abilify was gradually reduced and klonipin discontinues as remote possible cause remeron and effexor on reviewing the PDR had 1% possibility of causing asymptomatic increase in LFT'S An ultrasoung and CT scan of abdomen ordered by GIT team showing hypodense subcapsular masses, an MRI recommended yet pt declined to hve it done while inpatient pt prior to discharge educated about importance of compliance with GIT team recommendations on discharge pt mental status was stable denied suicidal or homicidal ideation, denied perceptual disturbances, follow up arranged by child welfare social worker with [facility] on discharge a meeting was held with upon pt request to discuss follow up treatment plan - Final Diagnosis (DSM 5) Condition upon Discharge: GOOD DSM 5: bipolar ii disorder 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 bereavement Disposition: HOME/ ROUTINE Follow-up Treatment Plan: [id number] mg daily DISCONTINUE klonopin abilify 5mg daily remeron 15 mg qhs child welfare social worker to arrange for family meeting to discuss discharge planning Prescriptions/Medication Reconciliation: ARIPiprazole [Abilify] 5 mg PO DAILY 30 Days #30 tab busPIRone [Buspar] 10 mg PO TID 30 Days #180 tab Mirtazapine [Remeron] 15 mg PO HS 30 Days #30 tab Venlafaxine [Effexor XR] 150 mg PO DAILY 30 Days #30 cer Zolpidem [Ambien] 5 mg PO HS PRN #30 tab PRN Reason: for insomnia - Antipsychotic Medications Pt discharged on 2 or more routine antipsychotic medications: No
--- NOTE | 2018-11-13 20:25 | PN ---
DATE: 11/13/2018 ENDOCRINOLOGY FOLLOWUP NOTE LOCATION: Room 316, Psychiatry. SUBJECTIVE: This is a 58-year-old female with major depressive disorder, presenting here with suicidal ideations and is now improving clinically and emotionally following a closer evaluation in the psychiatric unit as noted. She remains clinically and biochemically euthyroid at this time. LABORATORY DATA: Her latest chemistry shows a BUN of 8, sodium 142, potassium 3.8, chloride 100, CO2 of 31, glucose 97, and creatinine 0.8. Her plasma renin is 1.19 with a plasma aldosterone of 11 and an aldosterone-renin ratio of 9.2. Her serum cortisol level is 19.5. ASSESSMENT AND PLAN: So at this time, we have excluded biochemically the presence of underlying primary hyperaldosteronism as noted. Her transient hypokalemia was related to the recent loose watery diarrhea and gastrointestinal loss of potassium with the prior intake of furosemide, a diuretic given for hypertension control prior to this admission. She is scheduled for discharge today and was advised a close followup with her medical doctor for a repeat chemistry in the next 2-3 months or so after discharge. Carolina Goldman MD
== END 2018-11-13 14:30 | disposition home or self-care (01) | DRG 885 ==
LOC: H.ER 02:25 → H.PSYCH 02:30
PROVIDERS: ADMIT Psychiatry & Neurology Psychiatry; ATTEND Psychiatry & Neurology Psychiatry
PROC: GZHZZZZ Group Psychotherapy (ICD-10-PCS; principal; 2018-10-24)
PROC: GZ51ZZZ Individual Psychotherapy, Behavioral (ICD-10-PCS; 2018-10-24)
PROC: GZ56ZZZ Individual Psychotherapy, Supportive (ICD-10-PCS; 2018-10-24)
DX: F31.4 Bipolar disorder, current episode depressed, severe, without psychotic features (principal); N39.0 Urinary tract infection, site not specified; R45.851 Suicidal ideations; F41.1 Generalized anxiety disorder; F60.3 Borderline personality disorder; G47.00 Insomnia, unspecified; I10 Essential (primary) hypertension; J44.9 Chronic obstructive pulmonary disease, unspecified; K80.20 Calculus of gallbladder without cholecystitis without obstruction; R32 Unspecified urinary incontinence; Z82.3 Family history of stroke; Z87.410 Personal history of cervical dysplasia; R19.7 Diarrhea, unspecified; R74.0 Nonspecific elevation of levels of transaminase and lactic acid dehydrogenase [LDH]; R74.8 Abnormal levels of other serum enzymes; R79.89 Other specified abnormal findings of blood chemistry; E26.09 Other primary hyperaldosteronism; E78.5 Hyperlipidemia, unspecified; E87.6 Hypokalemia; F12.10 Cannabis abuse, uncomplicated; Z63.4 Disappearance and death of family member